=== PATIENT | female | born 1960 | race Caucasian/White ===

== ENCOUNTER 2022-03-28 13:14 | Emergency (ER) | payer OTHER ==
[2022-03-28 13:21] VITALS: TEMP 98; BMI 34.0
[2022-03-28] MEDS ORDERED: ACETAMINOPHEN 325 MG TABLET (FP) PO ONE (13:25)
[2022-03-28] MEDS ORDERED: ACETAMINOPHEN 325 MG TABLET (FP) ONE (13:43)
[2022-03-28 14:27] VITALS: BP 155/99; PULSE 78
== END 2022-03-28 14:28 | disposition home or self-care (01) ==
LOC: FER 13:14
DX: I10 Essential (primary) hypertension (principal)
CPT/HCPCS: 99284-25